=== PATIENT | male | born 1965 | race Two or more races ===

== ENCOUNTER 2018-01-25 08:37 | Day surgery (SDC) | payer OTHER ==
[~2018-01-25] VITALS: Ht 165.1 cm; Wt 85.7 kg
[2018-01-25] VITALS (8 sets, daily range): BP systolic 134–149; BP diastolic 78–91
[~2018-01-25 08:37] MED LIST: ceFAZolin 1gm IVPB IVPB ONE; celeBREX 200mg Cap **SURGERY PATIENTS ONLY ORAL ONE; oxyCONTIN 20mg tab ORAL ONE
[2018-01-25] MEDS ORDERED: LR 1000ml 1,000 ML IVLG SCH (08:59)
--- NOTE | 2018-01-25 08:59 | Anethesia Preoperative Eval ---
Anesthesia Pre-op PMH/ROS General Date of Evaluation: Jan 25, 2018 Time of Evaluation: 09:39 Anesthesiologist: Subhash ASA Score: ASA 3 Mallampati Score Class I : Soft palate, uvula, fauces, pillars visible Class II: Soft palate, uvula, fauces visible Class III: Soft palate, base of uvula visible Class IV: Only hard plate visible Mallampati Classification: Class II Surgeon: Davin Diagnosis: R Shoulder Pain Surgical Procedure: R Shoulder Arthroscopy Anesthesia History: none Family History: no anesthesia problems Allergies: Coded Allergies: No Known Allergies (Unverified , 01/25/18) Medications: see eMAR Patient NPO?: Yes Past Medical History Cardiovascular: Reports: HTN Endocrine: Reports: DM Other: obesity - BMI 33 Anesthesia Pre-op Phys. Exam Physician Exam Constitutional: NAD Neurologic: CN 2-12 intact Cardiovascular: RRR Respiratory: CTA Gastrointestinal: S/NT/ND Airway Exam Mallampati Score: Class II MO: limited ROM: limited Teeth: missing, intact Anesthesia Pre-op A/P Risk Assessment & Plan Assessment: ASA 3 Plan: GA, SED, Supraclavicular Block Status Change Before Surgery: No Pre-Antibiotics Dru Grams Ancef IV Given Within 1 Hr of Incision: Yes Time Given: 09:52 Augustus Mccain MD Jan 25, 2018 08:59
[2018-01-25] MEDS ORDERED: Hydromorphone 0.5mg/0.5ml inj IVP PRN (09:00)
[2018-01-25] MEDS ORDERED: Ketorolac 30mg Inj IV PRN ×2 (09:00)
[2018-01-25] MEDS ORDERED: HYDROcodone/Acetamin 7.5/325 tab ORAL PRN (09:00)
[2018-01-25] MEDS ORDERED: DiphenhydrAMINE 50mg/ml Inj IVP PRN (09:00)
[2018-01-25] MEDS ORDERED: Metoclopramide 10mg/2ml Inj IVP PRN (09:00)
[2018-01-25] MEDS ORDERED: fentaNYL 100 mcg/2 mL IV PRN (09:00)
[2018-01-25] MEDS ORDERED: Atropine Sulfate 0.4mg/ml inj IVP PRN (09:00)
[2018-01-25] MEDS ORDERED: Norco 5mg/325mg tab ORAL PRN ×3 (09:00→15:01)
[2018-01-25] MEDS ORDERED: LORazepam Inj 2mg/ml 1ml IV PRN (09:00)
[2018-01-25] MEDS ORDERED: Midazolam 2mg/2ml Inj IVP PRN (09:00)
[2018-01-25] MEDS ORDERED: Meperidine 50mg/ml Inj(FOR RIGORS ONLY) IVP PRN (09:00)
[2018-01-25] MEDS ORDERED: oxyCODONE HCL/Acetaminophen 5/325mg ORAL PRN (09:00)
--- NOTE | 2018-01-25 09:02 | Immediate Post-Op Evaluation ---
Immediate Post-Op Evalulation Immediate Post-Op Evalulation Procedure: 2 Grams Ancef IV Date of Evaluation: Jan 25, 2018 Time of Evaluation: 12:18 IV Fluids: 400 LR Blood Products: 0 Estimated Blood Loss: 25 Urinary Output: 0 Blood Pressure Systolic: 143 Blood Pressure Diastolic: 82 Pulse Rate: 62 Respiratory Rate: 16 O2 Sat by Pulse Oximetry: 100 Temperature (Fahrenheit): 97.2 Pain Score (1-10): 1 Nausea: No Vomiting: No Complications 0 Patient Status: awake, reacts, patent, extubated, none Hydration Status: adequate Dru Grams Ancef IV Given Within 1 Hr of Incision: Yes Time Given: 09:52 Augustus Mccain MD Jan 25, 2018 09:02
--- NOTE | 2018-01-25 09:03 | 48 Hour Post Anesthesia Eval ---
Post Anesthesia Evaluation Procedure: 2 Grams Ancef IV Date of Evaluation: Jan 25, 2018 Time of Evaluation: 14:23 Blood Pressure Systolic: 138 0: 87 Pulse Rate: 62 Respiratory Rate: 18 Temperature (Fahrenheit): 98.2 O2 Sat by Pulse Oximetry: 100 Airway: patent Nausea: No Vomiting: No Pain Intensity: 1 Hydration Status: adequate Cardiopulmonary Status: Stable Mental Status/LOC: patient returned to baseline Follow-up Care/Observations: 0 Post-Anesthesia Complications: 0 Follow-up care needed: ready to discharge Augustus Mccain MD Jan 25, 2018 09:03
[2018-01-25] MEDS ORDERED: Lidocaine 1% MPF 10mg/ml 5ml ONE (09:04)
[2018-01-25] MEDS ORDERED: Dexamethasone 4mg/ml vial ONE (09:04)
[2018-01-25] MEDS ORDERED: Ropivacaine 5mg/ml Vial 30ml INJ ONE (09:05)
[2018-01-25] MEDS ORDERED: celeBREX 200mg Cap **SURGERY PATIENTS ONLY ORAL ONE (09:23)
[2018-01-25] MEDS ORDERED: oxyCONTIN 20mg tab ORAL ONE (09:23)
[2018-01-25] MEDS ORDERED: EPINEPHrine 1mg/1ml Amp ONE (09:38)
[2018-01-25] MEDS ORDERED: DICLOFENAC SODI25 MG ORAL (09:38)
[2018-01-25] MEDS ORDERED: Kenalog-40 1ml Vial ONE (09:38)
[2018-01-25] MEDS ORDERED: LR 1000ml ONE (09:39)
[2018-01-25] MEDS ORDERED: Sterile Water Irrig 1000ml IRRIG ONE (09:39)
[2018-01-25] MEDS ORDERED: Propofol 200mg/20ml IV ONE (09:39)
[2018-01-25] MEDS ORDERED: NS Irrig 4000ml IRRIG ONE (09:39)
[2018-01-25] MEDS ORDERED: Bupivacaine w/Epi 0.25% 30ml Vial INJ ONE (10:21)
--- NOTE | 2018-01-25 10:25 | Operative Note - PDOC ---
Operative Note Operative Note Pre-op Diagnosis: right shoulder impingement, rct Procedure: see op report Post-op Diagnosis: same as pre-op plus Operative Findings: consistent w/pre-op dx studies Anesthesia: general Specimen: none Complications: none Condition: stable Estimated Blood Loss: none Implant(s) used?: No Willian Jin MD Jan 25, 2018 10:25
--- NOTE | 2018-01-25 10:25 | Pre-Procedure Note/Attestation ---
Pre-Procedure Note/Attestation Complete Prior to Procedure Planned Procedure: right Procedure Narrative: shoulder arthroscopy, sad Indications for Procedure Pre-Operative Diagnosis: right shoulder impingement Attestation I attest that I discussed the nature of the procedure; its benefits; risks and complications; and alternatives (and the risks and benefits of such alternatives ), prior to the procedure, with the patient (or the patient's legal student services representative). I attest that, if there was a reasonable possibility of needing a blood transfusion, the patient (or the patient's legal student services representative) was given the [facility] standardized written summary, pursuant to the [employer] [place] Blood Safety Act ([place] Health and Safety Code # 1645, as amended). I attest that I re-evaluated the patient just prior to the surgery and that there has been no change in the patient's H&P, except as documented below: Willian Jin MD Jan 25, 2018 10:25
[2018-01-25] MEDS ORDERED: Ketorolac 30mg Inj ONE (12:07)
[2018-01-25] MEDS ORDERED: Morphine Sulfate PF 0 ML ONE (12:07)
[2018-01-25] MEDS ORDERED: Tylenol #3 tab (300mg/30mg) ORAL PRN (15:01)
[2018-01-25] MEDS ORDERED: D5 1/2NS 1,000 ML IV SCH (15:01)
[2018-01-25] MEDS ORDERED: HYDROmorphone 1mg/ml Carpuject SUBQ PRN (15:01)
--- NOTE | 2018-01-25 22:15 | Operative Note - Dictated ---
DATE OF OPERATION: 01/25/2018 POSTOPERATIVE DIAGNOSIS: Right shoulder internal derangement and possible rotator cuff tear versus impingement syndrome. POSTOPERATIVE DIAGNOSES: 1. Full-thickness supraspinatus tendon tear. 2. Right shoulder biceps tendon tear. 3. Impingement syndrome. PROCEDURES: 1. Right shoulder arthroscopy and extensive intraarticular debridement. 2. Right shoulder arthroscopic rotator cuff repair. 3. Right shoulder biceps tenodesis (Soft tissue tenodesis). 5. Right shoulder subacromial decompression and bursectomy. SURGEON: Willian Jin M.D. ANESTHESIA: Interscalene with general. INDICATION FOR PROCEDURE: The patient is a pleasant gentleman, who has had progressive right shoulder pain. He was noted to have a high-grade almost a tear of the rotator cuff was subsequently bursitis. The patient failed conservative treatment and continued pain, elected to undergo right shoulder arthroscopy and possible debridement versus repair of rotator cuff tear, subacromial decompression, and bursectomy. Risks, limitations, expectations, and complications of the procedure were discussed in detail. All questions were addressed. DESCRIPTION OF PROCEDURE: After informed consent was obtained, the patient was brought to the operating room. The patient was placed under interscalene with general anesthesia. The patient was then carefully placed in beach-chair position. Right shoulder was prepped and draped in a sterile manner. Time-out was performed. The portal sites were marked out. Posterior skin incision was then made. Trocar was introduced into the glenohumeral joint. Of note, there was tearing of the biceps tendon. There was full-thickness tear. The footprint of the supraspinatus extending into the infraspinatus tendon. There was no significant chondral damage. The anterior labrum appeared to be intact along with the subscap. Through lateral portal, biceps tenodesis was performed. This biceps tendon was debrided to the superior labrum. The soft tissue lateral to the articular margin was debrided. Camera was then placed in the subacromial space. Complete bursectomy was performed. The undersurface of the acromion was identified. Acromioplasty was started from lateral to medial and completed posterior to anterior. Once that was done, two margin convergence stitches were then placed through anterior portion of the supraspinatus stem. [place] was then placed just lateral to the articular margin and two mattress sutures were placed along with lateral row. Once that was completed, shoulder was taken through range of motion and moved as a unit. The camera was repositioned in the glenohumeral joint and the footprint was recreated. At this point, the instruments were removed. Portal sites were closed with 3-0 Monocryl sutures. The patient was taken to recovery room with stable vital signs. EBL: None. COMPLICATIONS: None. SPECIMENS: None. IMPLANTS: Include 2 Biomet anchors. Willian Jin M.D. DR: LAQUITA JOB#: [id number] CC: [email or web address]
== END 2018-01-25 13:50 | disposition home or self-care (01) ==
LOC: SUR 08:37
DX: M75.41 Impingement syndrome of right shoulder (principal); M75.101 Unspecified rotator cuff tear or rupture of right shoulder, not specified as traumatic; S46.111A Strain of muscle, fascia and tendon of long head of biceps, right arm, initial encounter; R73.03 Prediabetes; I10 Essential (primary) hypertension; E66.9 Obesity, unspecified; Z68.33 Body mass index [BMI] 33.0-33.9, adult
CPT/HCPCS: 29826; 29827; 29828; 82962; C1713; J0171; J0690; J1100; J2250; J2405; J2704; J2795; 94003; 94150